=== PATIENT | female | born 1975 ===

== ENCOUNTER 2016-11-01 20:10 | Emergency (ER) | payer OTHER ==
[2016-11-01 20:43] VITALS: RESP 18; O2SAT 100
[2016-11-01] MEDS ORDERED: Oxycodone/Acetaminophen 5/325 mg Tab PO STA (21:01)
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
[2016-11-01] MEDS ORDERED: Oxycodone/Acetaminophen 5/325 mg Tab ONE (21:12)
[2016-11-01 22:58] VITALS: BP 124/82; PULSE 69; TEMP 98
--- NOTE | 2016-11-02 11:35 | RAD ---
Cervical spine three views History: Injury. Comparison: None available. Findings: Cervical spine visualized from C1 through C7. Multilevel anterior osteophyte formation at the C4 through C7 levels. No significant prevertebral soft tissue swelling. No evidence of acute displaced fracture. Dens is intact. Impression: Degenerative changes. If pain persists, consider MRI.
--- NOTE | 2016-11-02 11:37 | RAD ---
Lumbar spine three views History: Injury. Comparison: None available. Findings: Spine alignment is maintained. Vertebral body heights are preserved. Severe fecal retention in the colon. Impression: Negative acute. If pain persists, consider MRI.
== END 2016-11-01 22:58 | disposition home or self-care (01) ==
LOC: C.ER 20:10
DX: S16.1XXA Strain of muscle, fascia and tendon at neck level, initial encounter (principal); S39.012A Strain of muscle, fascia and tendon of lower back, initial encounter; V43.52XA Car driver injured in collision with other type car in traffic accident, initial encounter; Y92.414 Local residential or business street as the place of occurrence of the external cause

== ENCOUNTER 2016-12-21 14:16 | Emergency (ER) | payer OTHER ==
[2016-12-21 14:37] VITALS: O2SAT 100
[2016-12-21] MEDS ORDERED: Sodium Chloride 0.9% 1,000 ML IV STA (15:36)
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
[2016-12-21] MEDS ORDERED: Sodium Chloride 0.9% 1,000 ML ONE (15:46)
[2016-12-21 16:02] LABS: RBC URINE 7 /hpf (0-3); URINE BILIRUBIN NEGATIVE (NEGATIVE); URINE BLOOD 1+ (NEGATIVE); URINE COLOR Yellow (YELLOW); URINE GLUCOSE (UA) NORMAL (Normal); URINE KETONE NEGATIVE (NEGATIVE); URINE LEUKOCYTE ESTERASE TRACE Leu/uL (Negative); URINE PROTEIN NEGATIVE (NEGATIVE); URINE UROBILINOGEN NORMAL mg/dL (0.2-1.0); WBC URINE 1 /hpf (0-5)
[2016-12-21 16:16] LABS: BASO % 0.4 % (0.0-2.0); EOS % 0.5 % (0.0-4.0); HEMATOCRIT 34.9 % (34.0-47.0); LYMPH # 1.7 K/uL (1.0-4.3); LYMPH % 19.2 % (20.0-40.0); MEAN CELL VOLUME 89.9 fL (81.0-99.0); MEAN CORPUSCULAR HEMOGLOBIN 29.8 pg (27.0-31.0); MEAN CORPUSCULAR HGB CONC 33.2 g/dL (33.0-37.0); MEAN PLATELET VOLUME 8.6 fL (7.2-11.7); MONO # 0.6 K/uL (0.0-0.8); MONO % 6.5 % (0.0-10.0); NRBC % 0.1 % (0.0-2.0); RED CELL DISTRIBUTION WIDTH 13.5 % (11.5-14.5); WHITE BLOOD COUNT 8.9 K/uL (4.8-10.8)
[2016-12-21 16:21] LABS: CHLORIDE 104 mmol/L (98-107); SODIUM 139 mmol/L (132-148)
[2016-12-21 16:24] LABS: ALB/GLOB RATIO 1.1 (1.0-2.1); ALKALINE PHOSPHATASE 76 U/L (38-126); ALT/SGPT 25 U/L (9-52); AST/SGOT 20 U/L (14-36); BILIRUBIN,TOTAL 0.9 mg/dL (0.2-1.3); BLOOD UREA NITROGEN 12 mg/dL (7-17); CALCIUM 9.4 mg/dl (8.6-10.4); CARBON DIOXIDE 22 mmol/L (22-30); GFR AFRICAN-AMERICAN > 60; GLUCOSE,RANDOM 100 mg/dL (65-105); TOTAL PROTEIN 7.8 g/dL (6.3-8.3)
[2016-12-21 18:35] VITALS: BP 114/73; PULSE 78; RESP 17; TEMP 98.4
== END 2016-12-21 18:35 | disposition home or self-care (01) ==
LOC: C.ER 14:16
DX: R20.8 Other disturbances of skin sensation (principal)
CPT/HCPCS: 80053; 81001; 82550; 84703; 85025; 96360; 99285; J7040

== ENCOUNTER 2017-05-15 17:01 | Emergency (ER) | payer OTHER ==
[2017-05-15 17:16] VITALS: BMI 20.7
[2017-05-15 17:17] VITALS: TEMP 97.9
--- NOTE | 2017-05-15 20:07 | C.PDOC ---
History Of Present Illness pt c.o right knee pain s/p using knee to close a car door. pt did not fall, able to ambulate. Time Seen by Provider: 05/15/17 18:50 Chief Complaint (Nursing): Lower Extremity Problem/Injury History Per: Patient History/Exam Limitations: no limitations Onset/Duration Of Symptoms: Hrs (4) Current Symptoms Are (Timing): Still Present Severity: Mild Pain Scale Rating Of: 5 Recent travel outside of the [place]: No Past Medical History Reviewed: Historical Data, Nursing Documentation, Vital Signs Vital Signs: Last Vital Signs Temp 97.9 F 05/15/17 17:16 Pulse 72 05/15/17 20:26 Resp 20 05/15/17 20:26 BP 110/70 05/15/17 20:26 Pulse Ox 98 05/15/17 20:26 - Medical History PMH: No Chronic Diseases Denies: Chronic Kidney Disease Family History: States: Unknown Family Hx, Stroke - Social History Hx Tobacco Use: No Hx Alcohol Use: No Hx Substance Use: No - Immunization History Hx Tetanus Toxoid Vaccination: No Hx Influenza Vaccination: No Hx Pneumococcal Vaccination: No Review Of Systems Constitutional: Negative for: Fever, Chills Musculoskeletal: Positive for: Other (knee pain right) Skin: Negative for: Bruising Neurological: Negative for: Weakness, Numbness Physical Exam - Physical Exam Appears: Non-toxic, No Acute Distress Skin: Normal Color, Warm, Dry Head: Atraumatic, Normacephalic Extremity: Normal ROM (mild dec rom on flexion at knee due to pain), Tenderness (right proximal patella), No Pedal Edema, No Calf Tenderness, Capillary Refill ( normal less than 2 sec), No Swelling Pulses: Left Dorsalis Pedis: Normal, Right Dorsalis Pedis: Normal Neurological/Psych: Oriented x3, Normal Speech, Normal Cognition, Normal Motor, Normal Sensation ED Course And Treatment O2 Sat by Pulse Oximetry: 100 Medical Decision Making Medical Decision Making: pt able to bear weight with knee immobilizer on, no fx noted on xray Disposition Counseled Patient/Family Regarding: Studies Performed, Diagnosis, Need For Followup, Rx Given - Disposition Referrals: Yong Santiago MD [Staff Provider] - Disposition: HOME/ ROUTINE Disposition Time: 20:21 Condition: STABLE Additional Instructions: Wear knee immobilizer for comfort, Follow up with orthopedist. [place] for pain. Prescriptions: Ibuprofen [Motrin] 600 mg PO TID #30 tab Instructions: Knee Pain (ED) Forms: [facility] (Serbian), General Discharge Instructions - Clinical Impression Clinical Impression: Right knee injury
[2017-05-15 20:26] VITALS: BP 110/70; PULSE 72; RESP 20
[2017-05-15 23:15] VITALS: O2SAT 100
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
== END 2017-05-15 20:44 | disposition home or self-care (01) ==
LOC: C.ER 17:01
DX: S89.91XA Unspecified injury of right lower leg, initial encounter (principal); W22.8XXA Striking against or struck by other objects, initial encounter